=== PATIENT | female | born 1985 | race Caucasian/White ===

== ENCOUNTER 2019-11-27 20:53 | Inpatient (IN) ==
[~2019-11-27 20:53] MED LIST: DIPRIVAN VIAL ONE; MARCAINE SPINAL ONE; NEO-SYNEPHRINE INJ ONE; PITOCIN ONE; REGLAN INJ 10 MG VIAL ONE; VERSED ONE; XYLOCAINE 2 % (PLAIN) ONE; ZOFRAN INJ 4 MG VIAL ONE
[2019-11-27 21:06] VITALS: BMI 37.0
[2019-11-27 21:07] LABS: AMNISURE ROM TEST THERE IS A RUPTURE (NO RUPTURE)
[2019-11-27] MEDS ORDERED: LR 1000 ML IV 1,000 ML IV ONE ×2 (21:25→22:28)
[2019-11-27 21:45] LABS: BASOPHILS # (AUTO) 0.2 X10^3/uL (0.0-0.1); BASOPHILS % (AUTO) 2.4 % (0.2-1.0); EOSINOPHILS # (AUTO) 0.1 x10^3/uL (0.0-0.2); EOSINOPHILS % (AUTO) 1.2 % (0.9-2.9); HEMATOCRIT 38.9 % (36.0-47.0); HEMOGLOBIN 13.3 g/dL (12.0-16.0); LYMPHOCYTES # (AUTO) 1.7 X10^3/uL (1.3-2.9); LYMPHOCYTES % (AUTO) 19.1 % (21.0-51.0); MEAN CORPUSCULAR HEMOGLOBIN 29.2 pg (27.0-34.0); MEAN CORPUSCULAR HGB CONC 34.2 g/dL (33.0-35.0); MEAN CORPUSCULAR VOLUME 85.3 fL (80.0-100.0); MEAN PLATELET VOLUME 9.9 fL (7.4-11.0); MONOCYTES # (AUTO) 0.8 x10^3/uL (0.3-0.8); NEUTROPHILS # (AUTO) 6.1 x10^3/uL (2.2-4.8); NEUTROPHILS % (AUTO) 68.3 % (42.0-75.0); PLATELET COUNT 236 X10^3/uL (150.0-450.0); RED BLOOD COUNT 4.56 X10^6/uL (3.5-5.4); RED CELL DISTRIBUTION WIDTH 14.8 % (11.6-16.5); WHITE BLOOD COUNT 8.9 X10^3/uL (3.6-10.0)
[2019-11-27 21:46] LABS: BLOOD UREA NITROGEN 14 mg/dL (7-18); CALCIUM 10.2 mg/dL (8.5-10.1); CHLORIDE 98 mmol/L (98-107); CREATININE 0.52 mg/dL (0.55-1.02); SODIUM 133 mmol/L (136-145); eGFR NON BLACK RACES > 60 (>60)
[2019-11-27] MEDS ORDERED: LR 1000 ML IV 1,000 ML IV SCH (22:00)
[2019-11-27] MEDS ORDERED: ANCEF 1 GRAM IV PREMIX* 2 G/100 ML BAG IV ONE (22:22)
[2019-11-27] MEDS ORDERED: D5 1/2 NS 1L W PITOCIN 20 UNITS/L 20 UNITS/1,000 ML BAG IV ONE (22:28)
[2019-11-27] MEDS ORDERED: DILAUDID INJ ONE (22:28)
[2019-11-27] MEDS ORDERED: XYLOCAINE 2 % (PLAIN) ONE (22:28)
[2019-11-27 22:53] LABS: URIC ACID 4.5 mg/dL (2.6-6.0)
[2019-11-28] MEDS ORDERED: PHENERGAN INJ 25 MG IM PRN (00:46)
[2019-11-28] MEDS ORDERED: BENADRYL INJ 50 MG VIAL IVP PRN (00:46)
[2019-11-28] MEDS ORDERED: REGLAN INJ 10 MG VIAL IVP PRN (00:46)
[2019-11-28] MEDS ORDERED: ZOFRAN INJ 4 MG VIAL IVP PRN (00:46)
[2019-11-28 01:08] LABS: BILIRUBIN,URINE NEGATIVE (NEGATIVE); BLOOD/HEMOGLOBIN,URINE 2+ (NEGATIVE); GLUCOSE, URINE NEGATIVE (NEGATIVE); KETONES,URINE 2+ (NEGATIVE); LEUKOCYTE ESTERASE ,URINE NEGATIVE (NEGATIVE); NITRITES,URINE NEGATIVE (NEGATIVE); PROTEIN,URINE NEGATIVE (NEGATIVE); UROBILINOGEN,URINE NORMAL (NORMAL)
[2019-11-28] MEDS ORDERED: PROVENTIL NEB TX 0.083% 2.5MG/ 3ML NEB PRN (01:12)
[2019-11-28] MEDS ORDERED: D5 1/2 NS 1000 ML 1,000 ML with PITOCIN 20 UNITS IV SCH ×2 (01:12)
[2019-11-28] MEDS ORDERED: MYLICON TAB 80 MG CHEW PO PRN (01:12)
[2019-11-28] MEDS ORDERED: HYPERRHO S/D (or RHOGAM) IM PRN (01:12)
[2019-11-28] MEDS ORDERED: ADACEL or BOOSTRIX TDaP VACCINE IM ONE ×2 (01:12→06:07)
[2019-11-28] MEDS ORDERED: TORADOL 30 MG VIAL IVP PRN (01:12)
[2019-11-28 01:16] LABS: APPEARANCE,URINE CLEAR (CLEAR); BACTERIA,URINE NEGATIVE /HPF (NEGATIVE); COLOR,URINE YELLOW (YELLOW); RBC,URINE 0-2 /HPF (0-3); SQUAMOUS EPITHELIAL CELL,UR RARE /HPF (NEGATIVE)
[2019-11-28] MEDS ORDERED: MORPHINE SULFATE PCA 30 MG ONE (01:33)
[2019-11-28] MEDS: MORPHINE SULFATE PCA 30 MG IVP PRN ×2 (01:45→06:35)
[2019-11-28] MEDS ORDERED: BENADRYL INJ 50 MG VIAL IVP ONE (04:46)
[2019-11-28] MEDS ORDERED: BENADRYL INJ 50 MG VIAL ONE (04:49)
[2019-11-28 05:28] LABS: HEMATOCRIT 34.4 % (36.0-47.0); HEMOGLOBIN 11.7 g/dL (12.0-16.0)
[2019-11-28] MEDS ORDERED: D5 1/2 NS 1L W PITOCIN 20 UNITS/L 20 UNITS/1,000 ML BAG IV ONE (06:04)
[2019-11-28] MEDS ORDERED: MOTRIN TAB 800 MG PO ONE (07:16)
[2019-11-28] MEDS: MOTRIN TAB 800 MG PO PRN ×2 (07:31→18:14)
[2019-11-28] MEDS: COLACE CAP 100 MG PO SCH ×2 (08:37→20:04)
[2019-11-28] MEDS: PRENATAL PLUS PO SCH (08:37)
[2019-11-28] MEDS: PERCOCET TAB 5/325 MG PO PRN ×4 (08:37→22:03)
[2019-11-28] MEDS: PROTONIX TAB 40 MG PO SCH (08:38)
[2019-11-28] MEDS: BACTROBAN TOPICAL OINT TOP SCH ×2 (14:35→21:44)
[2019-11-29] MEDS: MOTRIN TAB 800 MG PO PRN (02:01)
[2019-11-29] MEDS: PERCOCET TAB 5/325 MG PO PRN ×2 (03:02→08:12)
[2019-11-29] MEDS: BACTROBAN TOPICAL OINT TOP SCH (05:31)
[2019-11-29] MEDS: COLACE CAP 100 MG PO SCH (08:11)
[2019-11-29] MEDS: PRENATAL PLUS PO SCH (08:12)
[2019-11-29] MEDS: PROTONIX TAB 40 MG PO SCH (08:12)
[2019-11-29 10:05] VITALS: BP 141/76
== END 2019-11-29 12:05 | disposition home or self-care (01) | DRG 787 ==
LOC: ER 20:53 → LD 21:33 → MED/SURG 11-28
PROVIDERS: ADMIT Specialist; ATTEND Specialist
DX: O99.89 Other specified diseases and conditions complicating pregnancy, childbirth and the puerperium; Z37.0 Single live birth; O36.0930 Maternal care for other rhesus isoimmunization, third trimester, not applicable or unspecified; Z3A.37 37 weeks gestation of pregnancy; Z23 Encounter for immunization; O64.1XX0 Obstructed labor due to breech presentation, not applicable or unspecified; O13.3 Gestational [pregnancy-induced] hypertension without significant proteinuria, third trimester
CPT/HCPCS: 36415; 80048; 81001; 83615; 84112; 84450; 84460; 84550; 85014; 85018; 85025; 85384; 85461; 85610; 85730; 86592; 86850; 86900; 86901; 90715; 99282; A4222; S0197; J0690; J1200; J2250; J2271; J2370; J2405; J2550; J2590; J2704; J2765; J2790; J3490; J7120